=== PATIENT | male | born 1940 | race Caucasian/White ===

== ENCOUNTER 2018-12-27 16:58 | Emergency (ER) | payer OTHER ==
[~2018-12-27] VITALS: Ht 180.3 cm; Wt 95.0 kg
[2018-12-27] MEDS ORDERED: SODIUM CHLORIDE FLUSH 10ML SYR IVF ONE (18:00)
[2018-12-27 18:16] LABS: BASOPHILS # (AUTO) 0.07 x10^3/uL (0-0.1); BASOPHILS % (AUTO) 1 % (0-1); EOSINOPHILS # (AUTO) 0.33 x10^3/uL (0-0.4); EOSINOPHILS % (AUTO) 2 % (1-7); LYMPHOCYTES # (AUTO) 1.98 x10^3/uL (1-3.4); LYMPHOCYTES % (AUTO) 14 % (22-44); MD NO; MEAN CORPUSCULAR HEMOGLOBIN 29.7 pg (27.5-34.5); MEAN CORPUSCULAR HGB CONC 32.9 g/dL (33.2-36.2); MEAN CORPUSCULAR VOLUME 90.2 fL (81-97); MEAN PLATELET VOLUME 7.6 fL (7.4-10.4); MONOCYTES # (AUTO) 1.01 x10^3/uL (0.2-0.8); MONOCYTES % (AUTO) 7 % (2-9); NEUTROPHILS # (AUTO) 10.69 x10^3/uL (1.8-6.8); NEUTROPHILS % (AUTO) 76 % (42-75); PLATELET COUNT 267 x10^3/uL (130-400); RED BLOOD COUNT 4.77 x10^6/uL (4.38-5.82); RED CELL DISTRIBUTION WIDTH 15.7 % (9.4-14.8)
[2018-12-27 18:25] LABS: ALANINE AMINOTRANSFERASE 60 U/L (12-78); ALBUMIN 2.9 g/dL (3.4-5.0); ANION GAP 6 mmol/L (5-15); CALCIUM 8.7 mg/dL (8.5-10.1); CHLORIDE 105 mmol/L (98-107); CREATININE 1.04 mg/dL (0.7-1.3)
[2018-12-27 18:28] LABS: ALKALINE PHOSPHATASE 79 U/L (45-117); BILIRUBIN,TOTAL 0.5 mg/dL (0.2-1.0); TOTAL PROTEIN 8.1 g/dL (6.4-8.2); TROPONIN I 0.021 ng/mL (0.000-0.045)
[2018-12-27] MEDS ORDERED: FURO20TA3 PO (18:34)
[2018-12-27] MEDS ORDERED: [UNRECOGNIZED DRUG - CODE] UR (18:34)
[2018-12-27] MEDS ORDERED: ALBU0.63 NEB (18:34)
[2018-12-27] MEDS ORDERED: PRED50TA PO (18:34)
[2018-12-27] MEDS ORDERED: ATOR-2 PO (18:34)
[2018-12-27] MEDS ORDERED: PANT40TA5 PO (18:34)
[2018-12-27] MEDS ORDERED: WARF-36 PO (18:34)
[2018-12-27] MEDS ORDERED: FLUT15.88 NAS (18:34)
[2018-12-27] MEDS ORDERED: BUDE0.5A INH (18:34)
--- NOTE | 2018-12-27 19:01 | NUR ---
CONTINUE TO MONITOR PT. CONVERSING WITH VISITOR
[2018-12-27 20:04] VITALS: BP 106/62
--- NOTE | 2018-12-27 20:07 | NUR ---
AFTER MD RE-EVAL, DISCHARGE PAPERS AND INSTRUCTIONS GIVEN. PT AMBULATED TO D/C WINDOW, STEADY GAIT AND WITHOUT ASSISTANCE. NO SOB NOTED.
== END 2018-12-27 20:10 | disposition home or self-care (01) ==
LOC: ED 19:40
DX: R06.00 Dyspnea, unspecified (principal); I10 Essential (primary) hypertension; I25.2 Old myocardial infarction; Z86.73 Personal history of transient ischemic attack (TIA), and cerebral infarction without residual deficits
CPT/HCPCS: 36415; 71045; 80053; 83605; 83880; 84484; 85025; 93005; 99284